=== PATIENT | male | born 1965 | race Two or more races ===

== ENCOUNTER 2016-11-01 12:29 | Emergency (ER) | payer OTHER ==
[~2016-11-01] VITALS: Ht 180.3 cm; Wt 62.5 kg
[~2016-11-01 12:29] MED LIST: DENIES MEDS
[2016-11-01 12:33] VITALS: Ht 180.3 cm; Wt 62.5 kg
[2016-11-01] MEDS ORDERED: FLUT9.9S NASAL (13:47)
[2016-11-01] MEDS ORDERED: AMO500 PO (13:47)
[2016-11-01] MEDS ORDERED: CETI10CA PO (13:47)
[2016-11-01] MEDS ORDERED: PRED20TA PO (13:47)
--- NOTE | 2016-11-01 13:51 | ERD ---
ER Documentation Chief Complaint Date/Time DATE: 11/01/16 TIME: 13:50 Chief Complaint headcahe , watery eyes , runny nose HPI This 50-year-old male complains of a three-week history of frontal headache, watery eyes nasal congestion and sneezing. He may be have yellow mucus occasionally. Denies any cough, vomiting shortness of breath or chest pain. Patient thinks he has some type of infection is requesting antibiotics. ROS All systems reviewed and are negative except as per history of present illness. Medications Home Meds Active Scripts Amoxicillin* (Amoxicillin*) 500 Mg Cap, 500 MG PO TID, #30 CAP Prov:ARRON SHAFER MD 11/01/16 Fluticasone Propionate (Flonase Allergy Relief) 9.9 Ml Maple.susp, 1 SPRAY NASAL DAILY, #1 BOTTLE TO EACH NOSTRIL Prov:ARRON SHAFER MD 11/01/16 Cetirizine Hcl* (Zyrtec*) 10 Mg Capsule, 10 MG PO DAILY, #30 TAB.CHEW Prov:ARRON SHAFER MD 11/01/16 Prednisone* (Prednisone*) 20 Mg Tab, 40 MG PO DAILY for 5 Days, TAB Prov:ARRON SHAFER MD 11/01/16 Reported Medications [Denies Meds] No Conflict Check 05/20/13 [None ] No Conflict Check 11/02/09 Allergies Allergies: Coded Allergies: No Known Drug Allergies (Verified Allergy, Mild, 05/20/13) PMhx/Soc History of Surgery: No Anesthesia Reaction: No Hx Neurological Disorder: No Hx Respiratory Disorders: No Hx Cardiac Disorders: No Hx Psychiatric Problems: No Hx Miscellaneous Medical Probl: No Hx Alcohol Use: No Hx Substance Use: No Hx Tobacco Use: No Physical Exam Vitals Vital Signs Date Time Temp Pulse Resp B/P Pulse Ox O2 Delivery O2 Flow Rate FiO2 11/01/16 12:33 98.1 88 18 127/96 98 Physical Exam Const: [] Alert, [id number] Head: Atraumatic Eyes: Normal Conjunctiva ENT: Normal External Ears, Nose and Mouth. TMs normal. Pupils nasal discharge. Mild tenderness in the mastoid sinus area. Postnasal drip. Neck: Full range of motion..~ No meningismus. Resp: Clear to auscultation bilaterally Cardio: Regular rate and rhythm, no murmurs Abd: Soft, non tender, non distended. Normal bowel sounds Skin: No petechiae or rashes Back: No midline or flank tenderness Ext: No cyanosis, or edema Neur: Awake and alert Psych: Normal Mood and Affect Procedures/MDM Patient presents with signs and symptoms likely allergic rhinitis. Patient is requesting antibiotics for sinusitis given duration patient will be obliged although patient was counseled on appropriate use of antibiotics. He will be treated with Zyrtec, amoxicillin and a short course of prednisone. We given Flonase as well. Patient is advised to follow-up with his primary doctor or return to the ER for any worsening symptoms. The patient was stable with no new complaints during the ER course. Clinically, there is no current evidence to suggest meningitis, sepsis, acute abdomen, pneumonia, acute coronary syndrome , pulmonary embolism, or any other emergent condition appearing to require further evaluation or hospitalization. The patient should certainly return for any new or worsening symptoms per the aftercare instructions. They should otherwise follow-up with her primary care doctor for reevaluation this week. Departure Diagnosis: Primary Impression: Allergic rhinitis Allergic rhinitis trigger: unspecified Allergic rhinitis seasonality: unspecified seasonality Qualified Code: J30.9 - Allergic rhinitis, unspecified allergic rhinitis trigger, unspecified rhinitis seasonality Additional Impression: Upper respiratory infection URI type: unspecified URI Qualified Code: J06.9 - Upper respiratory tract infection, unspecified type Condition: Stable Patient Instructions: Allergic Rhinitis, Sinusitis, Abx Tx [facility] Usted se grant hecho un examen mdico de control que le indica que no est en beverley condicin que requiera tratamiento urgente en el Departamento de Emergencia. Un estudio ms profundo y el tratamiento de rodriguez condicin pueden esperar sin ningn riesgo hasta que usted sea atendida/o en el consultorio de rodriguez mdico o beverley cl ciro. Es responsabilidad suya arreglar beverley shayan para el seguimiento del louie. MANEJO DE CONDICIONES NO URGENTES EN EL FUTURO 1) Si usted tiene un mdico de atencin primaria: Usted debera llamar a rodriguez mdico de atencin primaria antes de venir al departamento de emergencia. Despus de las horas de consultorio, rodriguez doctor o rodriguez asociado/a est disponible por telfono. El mdico o enfermero de abimbola en el servicio telefnico puede asesorarle por anel medio para atender el problema, o louie contrario se puede programar beverley shayan. 2) Si usted no tiene un mdico de atencin primaria: Llame al mdico o clnica de referencia que aparece abajo ganesh las horas de consultorio para hacer beverley shayan para que le vean. CLINICAS: [place] [id number] [phone] [facility] [phone] [facility] [phone] [place] [id number] [phone] [place] [id number] [phone] [facility]. [phone] ARRON ROUSSEAU MD Nov 01, 2016 13:51
== END 2016-11-01 14:30 | disposition home or self-care (01) ==
LOC: FTE 12:29
DX: J30.9 Allergic rhinitis, unspecified (principal); J06.9 Acute upper respiratory infection, unspecified
CPT/HCPCS: 99284

== ENCOUNTER 2016-11-22 14:37 | Emergency (ER) | payer SELFPAY ==
[~2016-11-22] VITALS: Ht 157.5 cm; Wt 78.9 kg
[~2016-11-22 14:37] MED LIST changes: +AMO500 PO; +CETI10CA PO; +FLUT9.9S NASAL; +PRED20TA PO
[2016-11-22 14:40] VITALS: Ht 157.5 cm; Wt 78.9 kg
[2016-11-22] MEDS ORDERED: KETOROLAC 30 MG INJ IM STA (16:47)
[2016-11-22] MEDS ORDERED: CARI350T PO (16:53)
[2016-11-22] MEDS ORDERED: IBUP-1542 PO (16:53)
[2016-11-22] MEDS ORDERED: ALPRAZOLAM 0.25 MG TAB PO ONE (17:00)
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
== END 2016-11-22 18:22 | disposition home or self-care (01) ==
LOC: FTE 14:37
DX: S39.012A Strain of muscle, fascia and tendon of lower back, initial encounter (principal); S16.1XXA Strain of muscle, fascia and tendon at neck level, initial encounter; V49.40XA Driver injured in collision with unspecified motor vehicles in traffic accident, initial encounter
CPT/HCPCS: 96372; J1885

== ENCOUNTER 2017-10-15 19:17 | Emergency (ER) | END 2017-10-15 22:03 | disposition home or self-care (01) ==